=== PATIENT | female | born 2005 | race Two or more races ===

== ENCOUNTER 2024-11-01 11:45 | Outpatient (CLI) | payer OTHER | END 2024-11-01 11:48 | disposition home or self-care (01) | LOC: PRENATAL 11:45 | PROVIDERS: ATTEND Obstetrics & Gynecology Maternal & Fetal Medicine | DX: O44.00 Complete placenta previa NOS or without hemorrhage, unspecified trimester (principal); Z3A.22 22 weeks gestation of pregnancy ==

== ENCOUNTER → 2025-01-17 15:39 | Outpatient (CLI) | payer OTHER | END | disposition home or self-care (01) | LOC: PRENATAL 15:39 | PROVIDERS: ATTEND Obstetrics & Gynecology Maternal & Fetal Medicine | DX: O26.849 Uterine size-date discrepancy, unspecified trimester (principal); O36.8199 Decreased fetal movements, unspecified trimester, other fetus; Z3A.34 34 weeks gestation of pregnancy ==

== ENCOUNTER 2025-02-17 02:03 | Outpatient (CLI) | payer OTHER ==
[2025-02-17 00:40] VITALS: BP 115/75
[2025-02-17] MEDS ORDERED: GUAIFENESIN 100 MG/5 ML BLIST.PACK PO SCH ×2 (05:00→08:00)
[2025-02-17 07:22] VITALS: BP 101/55
[2025-02-17 07:34] VITALS: BP 101/55
== END 2025-02-17 07:34 | disposition home or self-care (01) ==
LOC: OBS/DEL 02:03
PROVIDERS: ATTEND Obstetrics & Gynecology
DX: O47.03 False labor before 37 completed weeks of gestation, third trimester (principal); Z3A.36 36 weeks gestation of pregnancy

== ENCOUNTER 2025-02-19 22:46 | Outpatient (CLI) | payer OTHER ==
[2025-02-19 22:40] VITALS: BP 109/75
[2025-02-19] MEDS ORDERED: PRENATAL + DHA1 EAC1 PO (22:58)
[2025-02-19] MEDS ORDERED: VITAMIN C500 M6 PO (22:59)
[2025-02-19] MEDS ORDERED: FOLIC ACID20 MG PO (22:59)
[2025-02-19] MEDS ORDERED: RINGERS SOLUTION,LACTATED 1,000 ML IV SCH (23:15)
[2025-02-19 23:22] VITALS: BP 111/71
[2025-02-20 00:17] LABS: BASO % 0.6 % (0.1-1.2); EOS # 0.14 (0.04-0.54); EOS % 1.2 % (0.7-7.0); HEMATOCRIT 32.4 % (34.1-44.9); HEMOGLOBIN 10.8 g/dL (11.2-15.7); LYMPH # 1.98 (1.18-3.74); LYMPH % 16.6 % (19.3-53.1); MEAN CORPUSCULAR HEMOGLOBIN 28.7 pg (25.6-32.2); MONO # 0.97 (0.24-0.82); MONO % 8.1 % (4.7-12.5); NEUT # 8.35 (1.56-6.13); NEUT % 69.8 % (34.0-71.1); PLATELET COUNT 261 K/uL (163-369); RED BLOOD COUNT 3.76 M/uL (3.93-5.22); RED CELL DISTRIBUTION WIDTH 14.3 % (11.6-14.4)
[2025-02-20 04:05] VITALS: BP 108/65
[2025-02-20 06:21] VITALS: BP 106/56; O2SAT 98
[2025-02-20] MEDS ORDERED: GUAIFENESIN/DEXTROMETHORPHAN 100MG/10ML BLIST.PACK PO NR (11:30)
[2025-02-20 11:36] VITALS: BP 107/61
[2025-02-20] MEDS ORDERED: CEFAZOLIN SODIUM 1,000 MG VIAL ONE (14:46)
[2025-02-20 15:21] VITALS: BP 108/67
[2025-02-20 19:54] VITALS: BP 102/59
[2025-02-20 23:30] VITALS: BP 114/75
== END 2025-02-20 22:36 | disposition home or self-care (01) ==
LOC: OBS/DEL 22:46
PROVIDERS: Specialist; ATTEND Obstetrics & Gynecology
DX: O36.8130 Decreased fetal movements, third trimester, not applicable or unspecified (principal); Z3A.37 37 weeks gestation of pregnancy; O26.849 Uterine size-date discrepancy, unspecified trimester; O36.8199 Decreased fetal movements, unspecified trimester, other fetus

== ENCOUNTER 2025-02-24 05:55 | Inpatient (IN) | payer OTHER ==
[~2025-02-24] VITALS: Ht 154.9 cm; Wt 2.7 kg
[2025-02-24 05:25] VITALS: BP 116/73
[~2025-02-24 05:55] MED LIST: FOLIC ACID20 MG PO; PRENATAL + DHA1 EAC1 PO; VITAMIN C500 M6 PO
[2025-02-24] MEDS ORDERED: RINGERS SOLUTION,LACTATED 1,000 ML IV SCH ×2 (06:30→07:45)
[2025-02-24] MEDS ORDERED: MUCINEX1200 MG PO (06:50)
[2025-02-24 07:30] VITALS: BP 116/73
[2025-02-24 07:33] LABS: URINE APPEARANCE Cloudy; URINE BILIRRUBIN Negative (NEGATIVE); URINE COLOR Yellow; URINE GLUCOSE Negative (NEGATIVE); URINE KETONE Negative (NEGATIVE); URINE LEUKOCYTE Large; URINE NITRATE Positive; URINE PROTEIN 30 (NEGATIVE)
[2025-02-24 07:37] LABS: URINE BACTERIA 1845.6 uL (0.0-1933); URINE EPITHELIAL CELLS 38.1 uL (0.0-38.8); URINE RBC 6.7 uL (0.0-20.8); URINE WBC 2668.1 uL (0.0-23.2)
[2025-02-24 07:40] VITALS: BP 120/69
[2025-02-24 07:40] LABS: BASO % 0.4 % (0.1-1.2); EOS # 0.14 (0.04-0.54); EOS % 1.1 % (0.7-7.0); HEMATOCRIT 35.1 % (34.1-44.9); HEMOGLOBIN 11.7 g/dL (11.2-15.7); LYMPH # 2.17 (1.18-3.74); LYMPH % 17.8 % (19.3-53.1); MEAN CORPUSCULAR HEMOGLOBIN 28.7 pg (25.6-32.2); MONO # 1.01 (0.24-0.82); MONO % 8.3 % (4.7-12.5); NEUT # 8.53 (1.56-6.13); NEUT % 69.8 % (34.0-71.1); PLATELET COUNT 281 K/uL (163-369); RED BLOOD COUNT 4.07 M/uL (3.93-5.22); RED CELL DISTRIBUTION WIDTH 14.2 % (11.6-14.4)
[2025-02-24 07:55] LABS: INR < 0.93; PARTIAL THROMBOPLASTIN TIME 26.2 SECONDS (22.0-34.0); PROTHROMBIN TIME 10.2 SECONDS (9.0-11.5)
[2025-02-24 07:57] LABS: URINE BLOOD TRACE; URINE CAST 0.29 uL (0.0-1.40)
[2025-02-24] MEDS ORDERED: OXYTOCIN 500 ML IV ONE (08:00)
[2025-02-24 08:02] LABS: ALBUMIN 2.5 gm/dL (3.4-5.0); BILIRUBIN TOTAL 0.33 mg/dL (0.3-1.2); CALCIUM 8.7 mg/dL (8.5-10.1); CREATININE SERUM 0.54 mg/dL (0.55-1.02); GFR 142.51; GLOBULINA 4.6 G/DL (2.4-3.5); POTASSIUM 4.32 mEq/L (3.5-5.1); TOTAL PROTEIN 7.1 gm/dL (6.4-8.2)
[2025-02-24] MEDS ORDERED: OXYTOCIN 20 UNITS/500ML RL PIGGYBAG IV ONE (08:03)
[2025-02-24] MEDS ORDERED: MORPHINE SULFATE 4 MG/ML VIAL IV ONE ×2 (09:15→18:30)
[2025-02-24 12:07] VITALS: BP 138/80
[2025-02-24 15:07] VITALS: BP 135/85
[2025-02-24] MEDS ORDERED: CEFAZOLIN SODIUM 1,000 MG VIAL IV ONE (15:30)
[2025-02-24] MEDS ORDERED: OXYTOCIN 10 UNITS/ML VIAL IV ONE (15:45)
[2025-02-24] MEDS ORDERED: ERYTHROMYCIN BASE OPHT 1GM EACH TUBE OP ONE (15:45)
[2025-02-24] MEDS ORDERED: MORPHINE SULFATE 4 MG/ML CARTRIDGE IV SCH (17:00)
[2025-02-24 18:00] VITALS: BP 109/69
[2025-02-24 23:14] LABS: BASO % 0.3 % (0.1-1.2); HEMATOCRIT 33.1 % (34.1-44.9); HEMOGLOBIN 11.1 g/dL (11.2-15.7); LYMPH # 1.14 (1.18-3.74); LYMPH % 4.9 % (19.3-53.1); MEAN CORPUSCULAR HEMOGLOBIN 29.4 pg (25.6-32.2); MONO # 1.21 (0.24-0.82); MONO % 5.2 % (4.7-12.5); NEUT # 20.55 (1.56-6.13); NEUT % 88.8 % (34.0-71.1); PLATELET COUNT 255 K/uL (163-369); RED BLOOD COUNT 3.77 M/uL (3.93-5.22); RED CELL DISTRIBUTION WIDTH 14.3 % (11.6-14.4)
[2025-02-25 00:59] VITALS: BP 127/81
[2025-02-25 05:00] VITALS: BP 125/87
[2025-02-25] MEDS ORDERED: DOCUSATE SODIUM 100MG CAP PO SCH (08:00)
[2025-02-25] MEDS ORDERED: SIMETHICONE 125 MG CAPSULE PO SCH (08:00)
[2025-02-25] MEDS ORDERED: OxyCODONE HCL/APAP UD (PERCOCET) PO PRN (08:00)
[2025-02-25] MEDS ORDERED: OxyCODONE HCL 5 MG TABLET (ROXICODONE) PO PRN (08:00)
[2025-02-25] MEDS ORDERED: PNV,CALCIUM 72/IRON/FOLIC ACID 1 TAB TABLET PO SCH (08:00)
[2025-02-25] MEDS ORDERED: ACETAMINOPHEN 325 MG TABLET PO SCH (08:00)
[2025-02-25 08:30] VITALS: BP 118/65
[2025-02-25] MEDS ORDERED: ALBUTEROL SULFATE 0.5 ML/2.5 MG SOLUTION IH SCH (12:00)
[2025-02-25 15:51] VITALS: BP 103/64
[2025-02-25] MEDS ORDERED: GUAIFENESIN 600 MG TABLET.SA PO SCH (17:00)
[2025-02-25 20:00] VITALS: BP 125/58
[2025-02-26 00:33] VITALS: BP 114/57
[2025-02-26 08:00] VITALS: BP 115/78
[2025-02-26 16:07] VITALS: BP 107/73
[2025-02-26] MEDS ORDERED: ACETAMINOPHEN 500 MG GEL..CAP PO PRN (16:15)
[2025-02-26 21:16] VITALS: BP 119/76
[2025-02-27 00:04] VITALS: BP 116/78
[2025-02-27 08:49] VITALS: BP 117/80
== END 2025-02-27 18:12 | disposition home or self-care (01) | DRG 788 ==
LOC: OBS/DEL 05:55 → LDR 07:34 → OB/GYN 17:01 → O/R 02-27 10:49 → OB/GYN 02-27 10:50
PROVIDERS: Obstetrics & Gynecology; ADMIT Obstetrics & Gynecology; ATTEND Obstetrics & Gynecology
PROC: 4A1HXCZ Monitoring of Products of Conception, Cardiac Rate, External Approach (ICD-10-PCS; 2025-02-24)
PROC: 10D00Z1 Extraction of Products of Conception, Low, Open Approach (ICD-10-PCS; principal; 2025-02-24 15:00)
PROC: 3E0F7GC Introduction of Other Therapeutic Substance into Respiratory Tract, Via Natural or Artificial Opening (ICD-10-PCS; 2025-02-25)
DX: O33.8 Maternal care for disproportion of other origin (principal); Z3A.37 37 weeks gestation of pregnancy; Z37.0 Single live birth

== ENCOUNTER 2025-03-03 20:43 | Emergency (ER) | payer OTHER ==
[~2025-03-03] VITALS: Ht 154.9 cm; Wt 59.0 kg
[~2025-03-03 20:43] MED LIST changes: +MUCINEX1200 MG PO
[2025-03-03] MEDS ORDERED: ACETAMINOPHEN 500 MG GEL..CAP PO ONE (23:30)
[2025-03-04] MEDS ORDERED: ACETAMINOPHEN 500 MG GEL..CAP PO ONE (00:26)
[2025-03-04 02:13] LABS: URINE APPEARANCE Cloudy; URINE BILIRRUBIN Negative (NEGATIVE); URINE BLOOD Large; URINE COLOR Orange; URINE GLUCOSE Negative (NEGATIVE); URINE KETONE Negative (NEGATIVE); URINE LEUKOCYTE Large; URINE NITRATE Positive
[2025-03-04 02:17] LABS: URINE BACTERIA 1861.6 uL (0.0-1933); URINE EPITHELIAL CELLS 10.7 uL (0.0-38.8); URINE RBC 1272.8 uL (0.0-20.8); URINE WBC 2153.1 uL (0.0-23.2)
[2025-03-04 02:23] LABS: URINE CAST 0.14 uL (0.0-1.40); URINE PROTEIN 100 (NEGATIVE)
[2025-03-04] MEDS ORDERED: PROAIR RESPICL90 MCG IH (15:47)
[2025-03-04] MEDS ORDERED: PEPCID AC20 MG PO (20:20)
[2025-03-04] MEDS ORDERED: CEPHALEXIN500 M1 PO (20:20)
== END 2025-03-04 01:44 | disposition left against medical advice (07) ==
LOC: ER 21:01
PROVIDERS: Emergency Medicine
DX: O86.09 Infection of obstetric surgical wound, other surgical site (principal); Z88.6 Allergy status to analgesic agent

== ENCOUNTER 2025-03-04 14:38 | Emergency (ER) | payer OTHER ==
[~2025-03-04] VITALS: Ht 154.9 cm; Wt 72.6 kg
[2025-03-04] MEDS ORDERED: PROAIR RESPICL90 MCG IH (15:47)
[2025-03-04] MEDS ORDERED: PIPERACILLIN/TAZOBACTAM SODIUM 3.375 GM VIAL IV ONE ×2 (16:30→16:32)
[2025-03-04] MEDS ORDERED: TRAMADOL HCL 50 MG TABLET PO ONE (16:30)
[2025-03-04] MEDS ORDERED: FAMOtidine 10 MG/ML (4ML VIAL) IV ONE (16:30)
[2025-03-04] MEDS ORDERED: 0.9 % SODIUM CHLORIDE 1,000 ML IV ONE (16:30)
[2025-03-04] MEDS ORDERED: FAMOTIDINE/PF 20 MG/2 ML VIAL ONE (16:33)
[2025-03-04 17:37] LABS: INR 1.02; PARTIAL THROMBOPLASTIN TIME 26.4 SECONDS (22.0-34.0); PROTHROMBIN TIME 11.1 SECONDS (9.0-11.5)
[2025-03-04 17:46] LABS: ALBUMIN 2.5 gm/dL (3.4-5.0); BILIRUBIN TOTAL 0.25 mg/dL (0.3-1.2); CALCIUM 9.2 mg/dL (8.5-10.1); CREATININE SERUM 0.62 mg/dL (0.55-1.02); GFR 121.51; GLOBULINA 6.2 G/DL (2.4-3.5); POTASSIUM 4.04 mEq/L (3.5-5.1); TOTAL PROTEIN 8.7 gm/dL (6.4-8.2)
[2025-03-04 17:50] LABS: C-REACTIVE PROTEIN 14.4 MG/DL (0.00-0.29)
[2025-03-04 17:55] LABS: BASO % 0.5 % (0.1-1.2); EOS # 0.24 (0.04-0.54); EOS % 1.9 % (0.7-7.0); HEMATOCRIT 32.4 % (34.1-44.9); HEMOGLOBIN 10.5 g/dL (11.2-15.7); LYMPH # 2.16 (1.18-3.74); LYMPH % 16.8 % (19.3-53.1); MEAN CORPUSCULAR HEMOGLOBIN 28.6 pg (25.6-32.2); MONO # 0.65 (0.24-0.82); MONO % 5.1 % (4.7-12.5); NEUT # 8.98 (1.56-6.13); NEUT % 69.9 % (34.0-71.1); PLATELET COUNT 506 K/uL (163-369); RED BLOOD COUNT 3.67 M/uL (3.93-5.22); RED CELL DISTRIBUTION WIDTH 14.4 % (11.6-14.4)
[2025-03-04 18:02] LABS: ERYTHROCYTE SEDIMENTATION RATE > 130 mm/hr (0-20)
[2025-03-04 19:42] LABS: PH,URINE 7.5 (5.0-8.0); URINE APPEARANCE Clear; URINE BILIRRUBIN Negative (NEGATIVE); URINE BLOOD Large; URINE COLOR Yellow; URINE GLUCOSE Negative (NEGATIVE); URINE KETONE Negative (NEGATIVE); URINE LEUKOCYTE Large; URINE NITRATE Positive; URINE PROTEIN Trace (NEGATIVE)
[2025-03-04 19:46] LABS: URINE BACTERIA 1146.8 uL (0.0-1933); URINE EPITHELIAL CELLS 16.7 uL (0.0-38.8); URINE RBC 53.3 uL (0.0-20.8); URINE WBC 268.6 uL (0.0-23.2)
[2025-03-04] MEDS ORDERED: CEPHALEXIN500 M1 PO (20:20)
[2025-03-04] MEDS ORDERED: PEPCID AC20 MG PO (20:20)
[2025-03-04 20:58] LABS: URINE CAST 0.14 uL (0.0-1.40)
== END 2025-03-04 21:21 | disposition left against medical advice (07) ==
LOC: ER 14:47
PROVIDERS: General Practice
DX: G89.18 Other acute postprocedural pain (principal); Z88.6 Allergy status to analgesic agent
CPT/HCPCS: 36415; 74177; Q9965